=== PATIENT | female | born 1950 | race Caucasian/White ===

== ENCOUNTER 2020-07-14 14:21 | Outpatient (RCR) | payer MEDICARE, SELFPAY ==
[2013-06-21 14:46] VITALS: BMI 31.7
== END 2020-07-14 23:59 ==
LOC: IMMUN 14:21
PROVIDERS: PCP Internal Medicine; Referring Provider Family Medicine; Visit Provider Family Medicine
DX: Z23 Encounter for immunization (principal)
CPT/HCPCS: 0011A; 0012A; 91301